=== PATIENT | female | born 1975 | race Two or more races ===

== ENCOUNTER 2023-06-30 12:45 | Inpatient (IN) | payer OTHER ==
[~2023-06-30] VITALS: Ht 152.4 cm; Wt 63.0 kg
[2023-06-30] MEDS ORDERED: OSTERA TABLET1 EACH (14:58)
[2023-06-30] MEDS ORDERED: LIPITOR40 M1 (14:58)
[2023-07-06] MEDS ORDERED: CEFOXITIN SODIUM 2,000 MG VIAL IV ONE ×4 (12:34→18:04)
[2023-07-06] MEDS ORDERED: ESTRADIOL1 EACH (13:14)
[2023-07-06] MEDS ORDERED: THROMBIN,HU/FIBRINOGEN/CALCIUM 10 ML SYRINGE TOP ONE ×2 (15:02→15:15)
[2023-07-06] MEDS ORDERED: MORPHINE SULFATE 4 MG/ML CARTRIDGE IV PRN (15:45)
[2023-07-06] MEDS ORDERED: ONDANSETRON HCL 2 MG/ML VIAL IV PRN (15:45)
[2023-07-06] MEDS ORDERED: RINGERS SOLUTION,LACTATED 1,000 ML IV SCH (15:45)
[2023-07-06] MEDS ORDERED: SIMETHICONE 125 MG CAPSULE PO SCH (17:00)
[2023-07-06] MEDS ORDERED: CEFOXITIN SODIUM 2,000 MG VIAL IV SCH (17:00)
[2023-07-06] MEDS ORDERED: KETOROLAC TROMETHAMINE 30 MG VIAL IV SCH (17:00)
[2023-07-06] MEDS ORDERED: KETOROLAC TROMETHAMINE 30 MG VIAL ONE (18:04)
[2023-07-06 18:40] LABS: HEMATOCRIT 41.1 % (36.0-45.00); HEMOGLOBIN 13.6 g/dL (12.0-15.00); MEAN CELL VOLUME 86.2 fL (80.00-100.00); MEAN CORPUSCULAR HEMOGLOBIN 28.6 pg (27.00-32.0); MEAN CORPUSCULAR HGB CONC 33.1 g/dl (32.0-36.0); PLATELET COUNT 250 K/uL (150-450); RED BLOOD COUNT 4.77 M/uL (4.00-6.00); RED CELL DISTRIBUTION WIDTH 14.2 % (11.5-14.5)
[2023-07-06 19:06] LABS: CREATININE SERUM 0.92 mg/dL (0.55-1.02); GFR 65.15; POTASSIUM 5.04 mEq/L (3.5-5.1)
[2023-07-06] MEDS ORDERED: DOCUSATE SODIUM 100MG CAP PO SCH (21:00)
[2023-07-06] MEDS ORDERED: FAMOTIDINE/PF 20 MG/2 ML VIAL IV SCH (21:00)
[2023-07-07 06:09] LABS: HEMATOCRIT 35.2 % (36.0-45.00); MEAN CELL VOLUME 87.7 fL (80.00-100.00); MEAN CORPUSCULAR HGB CONC 34.2 g/dl (32.0-36.0); PLATELET COUNT 225 K/uL (150-450); RED BLOOD COUNT 4.01 M/uL (4.00-6.00)
[2023-07-07 07:07] LABS: CALCIUM 8.3 mg/dL (8.5-10.1); CREATININE SERUM 0.85 mg/dL (0.55-1.02); GFR 71.38; POTASSIUM 4.23 mEq/L (3.5-5.1)
[2023-07-07] MEDS ORDERED: ENOXAPARIN SODIUM 40 MG/0.4 ML SYRINGE SUBCUTANEO SCH (09:00)
[2023-07-07] MEDS ORDERED: OxyCODONE HCL/APAP UD (PERCOCET) PO PRN (09:30)
[2023-07-07] MEDS ORDERED: ACETAMINOPHEN 500 MG GEL..CAP PO SCH (21:15)
== END 2023-07-08 12:42 | disposition home or self-care (01) | DRG 743 ==
LOC: O/R 07-06 06:33 → SURH 07-06 06:33 → SURG 07-06 12:45 → SURH 07-06 17:08 → SURG 07-06 18:30 → SURH 07-08 12:42
PROVIDERS: Obstetrics & Gynecology; ADMIT Obstetrics & Gynecology Gynecologic Oncology; ATTEND Obstetrics & Gynecology Gynecologic Oncology
PROC: 0DBW0ZZ Excision of Peritoneum, Open Approach (ICD-10-PCS; 2023-07-06)
PROC: 07BC0ZZ Excision of Pelvis Lymphatic, Open Approach (ICD-10-PCS; 2023-07-06)
PROC: 0TN70ZZ Release Left Ureter, Open Approach (ICD-10-PCS; 2023-07-06)
PROC: 0TN60ZZ Release Right Ureter, Open Approach (ICD-10-PCS; 2023-07-06)
PROC: 0UT50ZZ Resection of Right Fallopian Tube, Open Approach (ICD-10-PCS; 2023-07-06)
PROC: 0UT00ZZ Resection of Right Ovary, Open Approach (ICD-10-PCS; 2023-07-06)
PROC: 0DNW0ZZ Release Peritoneum, Open Approach (ICD-10-PCS; 2023-07-06)
PROC: 0DBU0ZZ Excision of Omentum, Open Approach (ICD-10-PCS; 2023-07-06)
PROC: 0UT90ZZ Resection of Uterus, Open Approach (ICD-10-PCS; principal; 2023-07-06 18:30)
DX: D27.0 Benign neoplasm of right ovary (principal); Z20.822 Contact with and (suspected) exposure to COVID-19